=== PATIENT | female | born 2000 | race Caucasian/White ===

== ENCOUNTER 2021-05-04 13:54 | Emergency (ER) | payer OTHER, SELFPAY ==
[2021-05-04 14:11] VITALS: BP 143/90; PULSE 73; RESP 20; TEMP 36.4; O2SAT 100
--- NOTE | 2021-05-04 14:27 | ED.ABDPAIN ---
HPI - Abdominal Pain General Chief Complaint: Nausea/Vomiting/Diarrhea Stated Complaint: cold chills,nausea Time Seen by Provider: 05/04/21 14:30 Source: patient and RN notes reviewed Mode of arrival: ambulatory Limitations: no limitations History of Present Illness HPI narrative: 20-year-old female presents to the [facility] with complaints of right upper quadrant, epigastric pain along with nausea and vomiting since waking up this morning. Patient states that she ate qudoba yesterday and did smoke marijuana. Tenderness to the right upper quadrant. Has taken Zofran 4 mg prior to arrival and has been unable to stop vomiting. MD elicited complaint: abdominal pain Related Data Home Medications Medication Instructions Recorded Confirmed atomoxetine [Strattera] 60 mg PO DAILY 05/04/21 05/04/21 Allergies Allergy/AdvReac Type Severity Reaction Status Date / Time fluoxetine [From Prozac] Allergy Other Verified 05/04/21 14:30 tramadol Allergy Depression Verified 05/04/21 14:29 Review of Systems Review of Systems: All systems reviewed & are unremarkable except as noted in HPI and below Constitutional: Constitutional: Reports no additional constitutional complaints, Denies chills and Denies fever(s) Eyes: Eyes: Reports no additional eye complaints ENT: Reports system reviewed and no additional complaints, except as documented Cardiovascular: Cardiovascular: Reports no additional cardiovascular complaints Respiratory: Respiratory: Reports no additional respiratory complaints Gastrointestinal: Gastrointestinal: Reports as per HPI, Reports abdominal pain, Reports nausea and Reports vomiting Genitourinary: Genitourinary: Reports no additional female genitourinary complaints, Denies nocturia, Denies dysuria and Denies urinary incontinence Musculoskeletal: Musculoskeletal: Reports no additional musculoskeletal complaints Integumentary/Breasts: Skin/Breast: Reports system reviewed and no additional complaints, except as docu Neurologic: Reports system reviewed and no additional complaints, except as documented Psychiatric: Psychiatric: Reports no additional psychiatric complaints Allergic/Immunologic: Allergic/Immunologic: Reports no additional allergic/immunologic complaints PMFSH Past Medical History Medical History (Updated 05/04/21 @ 14:46 by Lisset Quinn) ADHD Suppurative hidradenitis Surgical History Surgical History (Updated 05/04/21 @ 14:42 by Lisset Quinn) No significant past surgical history Social History Social History (Updated 05/04/21 @ 14:42 by Lisset A. Topper) Substance use: current Substance use type: marijuana Living arrangements: with family Occupation/Education: student Gender identity (if verbalized by the patient): Female Comments At the time of my signature, I reviewed and agree with the nursing past medical, surgical, social, and family history. There is no relevant family history pertinent to the patient complaint. Exam Const: General: alert, awake, ill appearing acutely, tired appearing and uncomfortable Orientation/consciousness: patient oriented x3 Limitations: no limitations Other: Appears pale HENMT: Head: normal to inspection Eyes: Pupils: Equal, round and reactive pupils present Neck: Neck: normal visual inspection, no lymphadenopathy and no meningeal signs Chest: Chest palpation & inspection: normal inspection of the chest Resp: Effort & Inspection: normal respiratory effort Auscultation: clear to auscultation bilaterally Cardio: Rate: regular rate Rhythm: regular rhythm GI: GI Palp: Yes Soft to palpation and Yes Tenderness to palpation present (GI) (Epigastric, right upper quadrant) Auscultation: Hyperactive bowel sounds present : General: Yes no CVA tenderness Back/Spine/Pelvis: Back: no CVA tenderness Skin: General skin exam: pallor Neuro: General: patient oriented x3, moves all extremities, no meningeal signs and no focal motor def
[2021-05-04] MEDS: ONDANSETRON HCL ODT 4 MG TABLET PO (14:34)
== END 2021-05-04 14:45 | disposition home or self-care (01) ==
PROVIDERS: Emergency Provider Nurse Practitioner
DX: K52.9 Noninfective gastroenteritis and colitis, unspecified (principal)
CPT/HCPCS: 81003; 81025; 99213; A9270; G0463

== ENCOUNTER 2021-09-16 09:06 | Emergency (ER) | payer OTHER, SELFPAY ==
--- NOTE | ~2021-09-16 | XR_ITS ---
XR abdomen/kub 1V DATE: 09/16/2021 09:57 INDICATION: Nausea, vomiting, constipation for 4 days TECHNIQUE: 2 supine AP views COMPARISON: None FINDINGS: The lung bases appear clear. Heart size appears likely normal. The psoas shadows are intact. No visceromegaly is detected. There is no evidence of bowel obstruction . Occasional calcified pelvic phleboliths. No significant abnormal calcification is evident. Included skeletal structures are unremarkable. IMPRESSION: Nonspecific abdomen; no evidence of bowel obstruction Reviewed, dictated and finalized at [facility]. Reviewed, dictated and finalized at [facility]. RECAPPER
[2021-09-16 09:14] VITALS: BP 152/96; PULSE 88; RESP 16; TEMP 37.4; O2SAT 100
--- NOTE | 2021-09-16 09:19 | ED.ABDPAIN ---
HPI - Abdominal Pain General Chief Complaint: Nausea/Vomiting/Diarrhea Stated Complaint: Vomiting Time Seen by Provider: 09/16/21 09:20 Source: patient Mode of arrival: ambulatory Limitations: no limitations History of Present Illness HPI narrative: 20-year-old female presented for complaint of nausea vomiting for 3 to 4 days. She states she is only been able to keep sips of water down, endorses constipation for 4 days. Denies significant abdominal pain, diarrhea, hematemesis, fever or chills. History of gastroenteritis 04/2021, for which she was transferred to outside hospital. Endorses weight loss of 30 lbs at that time, and endorses 10lb weight loss in 3 days. Nexplanon for BC Related Data Home Medications Medication Instructions Recorded Confirmed atomoxetine [Strattera] 60 mg PO DAILY 05/04/21 09/16/21 etonogestrel [Nexplanon] 1 implant SUBDERMAL ONCE 09/16/21 09/16/21 Allergies Allergy/AdvReac Type Severity Reaction Status Date / Time fluoxetine [From Prozac] Allergy Unknown Other Verified 09/16/21 09:22 prochlorperazine AdvReac Intermediate Nausea and Verified 09/16/21 09:22 [From Compazine] Vomiting tramadol AdvReac Intermediate Depression Verified 09/16/21 09:22 Review of Systems Review of Systems: CONSTITUTIONAL: Denies body aches, fever, chills, or sweats. EYES: Denies visual changes, redness, or discharge. ENT: Denies rhinorrhea, congestion, sore throat, or otalgia. CARDIOVASCULAR: Denies chest pain, palpitations, or edema. RESPIRATORY: Denies cough or dyspnea. GASTROINTESTINAL: Endorses nausea, vomiting Denies abdominal pain,diarrhea, hematochezia, melena, hematemesis GENITOURINARY: Denies dysuria or hematuria. SKIN: Denies rash, itching, or wounds. MUSCULOSKELETAL: Denies back pain, joint pain, or myalgia. NEUROLOGIC: Denies headache, numbness, tingling, or weakness. PSYCH: Denies depression or anxiety. All systems reviewed & are unremarkable except as noted in HPI and below PMFSH Past Medical History Medical History ADHD Suppurative hidradenitis Surgical History Surgical History No significant past surgical history Social History Social History Substance use: current Substance use type: marijuana Gender identity (if verbalized by the patient): Female Comments At time of signature, I have reviewed and agree with nursing past medical, surgical, social and family history unless otherwise noted. Please see nursing chart for further information. There is no relevant family history pertinent to the presenting complaint Exam Narrative: GENERAL: Ill-appearing, well-nourished, no acute distress. HEAD: Normocephalic, atraumatic. EYES: EOMI. No redness or drainage. Conjunctivae normal. ENT: Mucous membranes pale and dry NECK: Normal AROM. Supple. No lymphadenopathy. CHEST: No respiratory distress. Clear to auscultation. HEART: Regular rate and rhythm. No murmur appreciated. Normal peripheral pulses. ABDOMEN: Tender abdomen diffuse; No guarding or rebound tenderness, abd soft, nondistended, decreased bowel sounds. MUSCULOSKELETAL: No bony tenderness. EXTREMITIES: Normal range of motion. No edema. SKIN: Warm, dry, no rash. Capillary refill normal. Normal skin turgor. NEURO: No focal deficits. Alert and oriented x3. Gait steady. PSYCH: Normal affect. No signs of depression or anxiety. Course Course Emergency Course: Offered zofran, states it made her vomit immediately last time; refused medication. urine +ketone blood pro peyman KUB unremarkable Reviewed results with pt, continues with intractable vomiting after pepcid. Pt is agreeable to transfer. Requests [facility] for fluid resuscitation for dehydration via private vehicle. Risks of transportation reviewed with pt and mother who will be driving pt includ
[2021-09-16] MEDS: FAMOTIDINE 20 MG TABLET 40 MG PO (09:47)
== END 2021-09-16 10:50 | disposition short-term general hospital (02) ==
PROVIDERS: Emergency Provider Nurse Practitioner Family
DX: R11.10 Vomiting, unspecified (principal); F90.9 Attention-deficit hyperactivity disorder, unspecified type
CPT/HCPCS: 74018; 81003; 87077; 87086; 87088; 99213; A9270; G0463

== ENCOUNTER 2022-08-19 16:53 | Emergency (ER) | payer SELFPAY ==
--- NOTE | 2022-08-19 16:58 | ED.FEMALEGU ---
HPI - Female Genitourinary General Chief complaint: Urogenital-Female Stated complaint: Poss UTI Time Seen by Provider: 08/19/22 16:58 Source: patient and RN notes reviewed History of Present Illness HPI Narrative: patient is a 21-year-old female presents to Urgent Care with her mother with complaints of a possible UTI due to nausea, frequency, burning with urination and suprapubic pressure. Patient states that it started yesterday. Denies any vomiting, abdominal pain or low back pain. Patient does have a history of UTIs with the last 1 being in November of 2021. No other acute complaints. No acute distress noted. Patient aware of the plan of care. Some parts of this dictation were generated by voice recognition software and may contain typographical and/or grammatical inaccuracies. Related Data Home Medications Medication Instructions Recorded Confirmed atomoxetine 60 mg capsule 60 mg PO DAILY 05/04/21 08/19/22 (Strattera) etonogestrel 68 mg subdermal 1 implant subdermal ONCE 09/16/21 08/19/22 implant (Nexplanon) biotin 10,000 mcg-keratin 100 mg 1 tablet PO DAILY 08/19/22 08/19/22 tablet (Biotin Plus Keratin) cetirizine 10 mg tablet (Zyrtec) 10 mg PO DAILY 08/19/22 08/19/22 Allergies Allergy/AdvReac Type Severity Reaction Status Date / Time fluoxetine [From Prozac] Allergy Unknown Other Verified 08/19/22 17:10 prochlorperazine AdvReac Intermediate Nausea and Verified 08/19/22 17:10 [From Compazine] Vomiting tramadol AdvReac Intermediate Depression Verified 08/19/22 17:10 Review of Systems Review of Systems: CONSTITUTIONAL: Denies fever, chills, or sweats. EYES: Denies visual changes, redness, or discharge. ENT: Denies rhinorrhea, congestion, sore throat, or otalgia. CARDIOVASCULAR: Denies chest pain, palpitations, or edema. RESPIRATORY: Denies cough or dyspnea. GASTROINTESTINAL: reports of suprapubic pressure and nausea GENITOURINARY: Reports of dysuria, urgency and frequency SKIN: Denies rash or itching. MUSCULOSKELETAL: Denies back pain, joint pain, or myalgia. NEUROLOGIC: Denies headache, numbness, or weakness. All other systems reviewed are negative, except as documented in HPI. [facility] Past Medical History Medical History ADHD Suppurative hidradenitis Surgical History Surgical History No significant past surgical history Social History Social History Substance use: current Substance use type: marijuana Gender identity (if verbalized by the patient): Female Comments At the time of my signature, I reviewed and agree with the nursing past medical, surgical, social, and family history. There is no relevant family history pertinent to the patient complaint. Exam Narrative: GENERAL: This is a well-nourished, well-developed patient, in no apparent distress. HEAD: normocephalic, atraumatic. EYES: PERRL. Sclera clear/white. Vision is grossly intact. EARS: External ears normal NOSE: External nose normal with no obvious nasal discharge, nares without redness, no rhinorrhea. THROAT: Mucous membranes moist NECK: Neck supple GASTROINTESTINAL: Abdomen soft, non-tender, nondistended. SKIN: warm, intact with no suspicious lesions or rash, good texture and turgor. NEURO: awake, alert, and oriented to person, place and time. There were no obvious focal neurologic abnormalities. EXTREMITIES: No clubbing, cyanosis, or edema. BACK: negative bilateral CVA tenderness Course Course Level of Care: Express Care Visit Vital Signs Vital signs: Vital Signs Temperature 99 F 08/19/22 17:04 Pulse Rate 89 08/19/22 17:04 Respiratory Rate 20 08/19/22 17:04 Blood Pressure 109/76 08/19/22 17:04 Pulse Oximetry 100 08/19/22 17:04 Oxygen Delivery Room Air 08/19/22 17:04 Temperature 99 F 08/19/22 17:14 Pulse
[2022-08-19 17:04] VITALS: BP 109/76; PULSE 89; RESP 20; TEMP 37.2; O2SAT 100
[2022-08-19 17:14] VITALS: BP 109/76; PULSE 89; RESP 20; TEMP 37.2
== END 2022-08-19 17:33 | disposition home or self-care (01) ==
PROVIDERS: Emergency Provider Nurse Practitioner Family; PCP Physician Assistant
DX: N39.0 Urinary tract infection, site not specified (principal); F12.90 Cannabis use, unspecified, uncomplicated; F90.9 Attention-deficit hyperactivity disorder, unspecified type
CPT/HCPCS: 81003; 87077; 87086; 87186; 99213; G0463

== ENCOUNTER 2022-12-03 14:35 | Emergency (ER) | payer BC, SELFPAY ==
[2022-12-03 14:48] VITALS: PULSE 122; RESP 16; TEMP 37.3; O2SAT 100
[2022-12-03 15:40] VITALS: BP 140/90
--- NOTE | 2022-12-03 15:42 | ED.NAVMDI ---
HPI - Nausea/Vomiting/Diarrhea General Chief complaint: Urogenital-Female Stated complaint: Vomiting/Urinary Problem Time Seen by Provider: 12/03/22 15:18 Source: patient, family (Mother) and old records reviewed (Urinalysis from mother's phone from last night's visit) Mode of arrival: ambulatory Limitations: no limitations History of Present Illness HPI Narrative: Patient presents today complaining of nausea, dry cough, low abdominal discomfort. She was in the ER the past 2 nights with same symptoms and additional vomiting. She has been told she has constipation and it has been suggested that she use a stool softener and laxative, but she hasn't tried it yet. Her last bowel movement was very hard. The patient believe she has UTI due to the vomiting. She had her urine checked the past 2 nights and it was negative for infection. Patient states she has been taking Zofran and Reglan at home for her nausea with minimal relief. Related Data Home Medications Medication Instructions Recorded Confirmed atomoxetine 60 mg capsule 60 mg PO DAILY 05/04/21 12/03/22 (Strattera) etonogestrel 68 mg subdermal 1 implant subdermal ONCE 09/16/21 12/03/22 implant (Nexplanon) biotin 10,000 mcg-keratin 100 mg 1 tablet PO DAILY 08/19/22 12/03/22 tablet (Biotin Plus Keratin) cetirizine 10 mg tablet (Zyrtec) 10 mg PO DAILY 08/19/22 12/03/22 gabapentin 300 mg capsule 300 mg PO TID 12/03/22 12/03/22 ondansetron 4 mg disintegrating See Rx Instructions .Route 12/03/22 12/03/22 tablet .COMPLEX PRN Nausea Allergies Allergy/AdvReac Type Severity Reaction Status Date / Time fluoxetine [From Prozac] Allergy Unknown Other Verified 12/03/22 15:14 prochlorperazine AdvReac Intermediate Nausea and Verified 12/03/22 15:14 [From Compazine] Vomiting tramadol AdvReac Intermediate Depression Verified 12/03/22 15:14 Review of Systems Review of Systems: CONSTITUTIONAL: Denies body aches, fever, chills, or sweats. EYES: Denies visual changes, redness, or discharge. ENT: Denies rhinorrhea, congestion, sore throat, or otalgia.+ dry mouth CARDIOVASCULAR: Denies chest pain, palpitations, or edema. RESPIRATORY: Denies cough or dyspnea. GASTROINTESTINAL: Denies diarrhea.+ nausea, vomiting, abdominal discomfort GENITOURINARY: Denies dysuria or hematuria. SKIN: Denies rash, itching, or wounds. MUSCULOSKELETAL: Denies back pain, joint pain, or myalgia. NEUROLOGIC: Denies headache, numbness, tingling, or weakness. PSYCH: Denies depression or anxiety. PMFSH Past Medical History Medical History ADHD Suppurative hidradenitis Surgical History Surgical History No significant past surgical history Social History Social History Substance use: current Substance use type: marijuana Living arrangements: with family Occupation/Education: student Gender identity (if verbalized by the patient): Female Comments At time of signature, I have reviewed and agree with nursing past medical, surgical, social and family history unless otherwise noted. Please see nursing chart for further information. There is no relevant family history pertinent to the presenting complaint Exam Narrative: GENERAL: Well-appearing, well-nourished, and in no acute distress. HEAD: Normocephalic, atraumatic. EYES: EOMI. No redness or drainage. Conjunctivae normal. ENT: Mucous membranes pink and moist. NECK: Normal AROM. Supple. No lymphadenopathy. CHEST: No respiratory distress. Clear to auscultation. HEART: Regular rate and rhythm. No murmur appreciated. ABDOMEN: Soft, nontender, nondistended, normal active bowel sounds. SKIN: Warm, dry, no rash. Capillary refill normal. Normal skin turgor. NEURO: No focal deficits. Alert and oriented x3. Gait steady. PSYCH: Normal affect. No signs of depr
== END 2022-12-03 15:50 | disposition home or self-care (01) ==
PROVIDERS: Emergency Provider Nurse Practitioner; PCP Physician Assistant
DX: R11.0 Nausea (principal); K59.00 Constipation, unspecified; F12.90 Cannabis use, unspecified, uncomplicated; F90.9 Attention-deficit hyperactivity disorder, unspecified type
CPT/HCPCS: 81003; 87086; 99213; G0463